=== PATIENT | female | born 1990 | race Two or more races ===

== ENCOUNTER 2016-09-28 05:33 | Inpatient (IN) | payer MEDICAID ==
--- NOTE | 2016-09-27 21:31 | PCM.LDHP ---
L&D History of Present Illness - General Date of Service: 09/28/16 Admit Problem/Dx: Admission Diagnosis/Problem Admission Diagnosis/Problem 09/27/16 21:17 History of present illness: Term intrauterine at 39-5/7 weeks gestational age, admitted for primary section. Source of Information: Patient History Limitations: Reports: No limitations - History of Present Illness Introduction:: History present illness: Patient is a 26-year-old 2 para 0010 at was due on 09/30/2002 placing her at 39-5/7 weeks gestation on admission. She is admitted for a scheduled section. She has history of hypertension, is unavailable 100 mg by mouth 3 times a day and has a relatively large baby with no descent into the pelvis. He has been headdown on ultrasound evaluation. Cervix is closed thick firm and no descent into the pelvis is noted. Patient has very narrow pubic ankle. Discussion was held patient as to her high blood pressure, her obesity and her lack of descent of the head into the pelvis. Options of intervention with primary section versus continued monitoring versus induction of labor all discussed with patient. She presents and wishes to proceed with primary section. ANIMAL CARE SPECIALIST history: 1 para 0010. Patient had menarche at age 15. Cycles q. 28 days. Last menstrual period was definite. Her is dated by last menstrual start 12/25/2015. Patient has had multiple ultrasounds along the way showing support for her LADY of 09/30/2016. Patient's group B strep screen is negative. She is a gestational diabetic. She is a gestational hypertensive. She is on meds for this. She is history of suicide attempt prior to this . She has significant obesity places her at higher risk. Her T. dap was given on 07/27/2016. During the course her patient's blood pressure increased and she was started on labetalol in early August 2016. This dosage was increased to 200 mg by mouth 3 times a day and with this does the patient has been relatively stable with near normal blood pressure evaluation. Findings more consistent with gestational hypertension and preeclampsia. Previous resulted in a miscarriage at 10 weeks occurring on 2008. Laboratory testing and shows blood to be O+. Negative and by screen. Platelets at first visit to 75. After is normal with exception no endocervical cells. Developed there shows immunity. RPR is nonreactive. Hepatitis B test is negative. Chlamydia and gonorrhea negative. Second trimester hemoglobin was 12.0 g/dL/and a repeat test in August 2016 showed a decreased at 10.8. Platelets are 248. Her group B strep screen. Weight gain was from 338.8 pounds to 361 pounds. This is a 22.2 #weight gain. Allergies none Medications: 1. vitamins daily 2. Labetalol 200 mg by mouth 3 times a day Past medical history: 1. Depression-suicidal attempt 2. Anxiety 3. Miscarriage. Family history paternal grandmother with diabetes and hypertension. Father with kidney stone history. No anesthesia, bleeding, blood clot sounds noted in the family. Social history: patient is single her significant other is Francis WALLACE. Patient smokes somewhat has lessened from 1 pack per day to one pack per week. She uses a significant amount of alcohol in a remote past but has been without alcohol during this . She is not working outside the home. She lives in [facility]. Review of systems: HEENT-negative Cardiovascular negative Respiratory-unremarkable Breasts-normal Abdomen/GI-normal -findings consistent with term Extremities/musculoskeletal-unremarkable Physical exam: On last evaluation clinic on 09/27/2016 her blood pressure is 114/70, weight was 361 pounds, her pregravid weight was 338.8 pounds. Height is 5 feet 11 inches. Skin is warm dry without lesions. HEENT, neck and back within normal as Lungs are clear with good breath sounds in all troncoso. Cardiovascular exam shows regular and rhythm without murmurs. Breasts exam is deferred having been done the time of her first child was found to be normal. Abdomen is obese with last fundal height at 49 cm much of this secondary to obesity. Difficult to assess the presentation but ultrasound confirms vertex presentation Cervical exam there closed/70% effaced/-3//midposition-cannot tell what presenting part is Extremities and neurological exam shows trace edema, normal neurological exam. - Related Data Allergies/Adverse Reactions: Allergies Allergy/AdvReac Type Severity Reaction Status Date / Time No Known Allergies Allergy Verified 09/12/16 13:08 Home Medications: Home Meds Pnv No.122/Iron/Folic Acid [ Multi Tablet] 1 each PO DAILY 09/12/16 [ History] Labetalol [Normodyne] 100 mg PO BID #60 tablet 09/14/16 [Rx] Social & Family History - Tobacco Use Smoking Status *Q: Current Every Day Smoker Years of Tobacco use: 5 - Alcohol Use Days Per Week of Alcohol Use: 0 - Recreational Drug Use Recreational Drug Use: No H&P Review of Systems - Review of Systems: Review Of Systems: See Below L&D Exam - Exam Exam: See Below - Vital Signs Weight: 163.112 kg Problem List Initiated/Reviewed/Updated: Yes Assessment/Plan Comment:: Assessment: 1. Term intrauterine at 39-5/7 weeks gestational age upon admission for a scheduled section. Reason for section include- hypertension in , non-engaged head, borderline narrow pelvic outlet. 2. Risk factors for surgery include morbid obesity, history of gestational diabetes, 3. T. lbf-ia-[id number]-date Plan: 1. Plan to do a primary section on 09/28/2016, procedure, risks, benefits, possible of cases and alternatives of care discussed in detail the patient. She appears to understand, and wishes to proceed and has signed a consent. 2. DVT prophylaxis with SCDs 3. Impression perforated Lasix with Ancef 3 g IV preop 4. Medication and lab orders are placed. Laboratories to include CBC and type and screen. 5. Patient plans to nurse
[~2016-09-28 05:33] MED LIST: Sodium Chloride 0.9% 10 ML Syringe FLUSH PRN
[2016-09-28] MEDS: Lactated Ringers 1,000 ML IV SCH ×2 (06:13→07:01)
[2016-09-28] MEDS ORDERED: Pneumococcal Polyvalent-23 Vaccine 0.5 ML SDV IM ONE (06:34)
[2016-09-28] MEDS ORDERED: Bupivacaine 0.5% 30 ML SDV ONE (06:37)
[2016-09-28] MEDS ORDERED: Citric Acid/Sodium Citrate Solution 30 ML Cup PO ONE (06:45)
[2016-09-28] MEDS ORDERED: Metoclopramide 10 MG/2 ML SDV IVPUSH ONE (06:45)
[2016-09-28] MEDS ORDERED: ceFAZolin 2 GM in Premix Bag 1 BAG IV ONE (07:00)
[2016-09-28] MEDS ORDERED: Lactated Ringers 1,000 ML ONE ×2 (07:00)
[2016-09-28] MEDS ORDERED: Morphine 10 MG/ML Syringe ONE (07:01)
[2016-09-28] MEDS ORDERED: ceFAZolin 1 GM Vial ONE ×2 (07:01→07:31)
[2016-09-28] MEDS ORDERED: Morphine PF 10 MG/10 ML SDV ONE (07:01)
[2016-09-28] MEDS ORDERED: Ondansetron 4 MG/2 ML SDV ONE (07:01)
[2016-09-28] MEDS ORDERED: Oxytocin 10 Units/1 ML SDV ONE (07:03)
--- NOTE | 2016-09-28 07:11 | PCM.PREANE ---
Preanesthetic Assessment - Anesthesia/Transfusion/Family Hx Anesthesia History: No Prior Anesthesia Transfusion History: No Prior Transfusion(s) - Review of Systems General: No Symptoms Pulmonary: No Symptoms Cardiovascular: No Symptoms Gastrointestinal: No symptoms Neurological: No Symptoms Other: Reports: Easy Bruising, Depression, Anxiety - Physical Assessment NPO Status Date: 09/27/16 NPO Status Time: 23:30 O2 Sat by Pulse Oximetry: 96 Respiratory Rate: 18 Vital Signs: Last Vital Signs Temp 98.5 F 09/28/16 05:57 Pulse 98 09/28/16 05:57 Resp 18 09/28/16 05:57 BP 143/64 H 09/28/16 05:57 Pulse Ox 96 09/28/16 05:57 Height: 5 ft 11 in Weight: 165.334 kg ASA Class: 2 Mental Status: Alert & Oriented x3 Airway Class: Mallampati = 1 Dentition: Reports: Normal Dentition, Broken Tooth/Teeth, Missing Tooth/Teeth, Caries Thyro-Mental Finger Breadths: 3 Mouth Opening Finger Breadths: 3 ROM/Head Extension: Full Lungs: Clear to auscultation, Normal respiratory effort Cardiovascular: Regular Rate, Regular Rhythm - Allergies Allergies/Adverse Reactions: Allergies Allergy/AdvReac Type Severity Reaction Status Date / Time No Known Allergies Allergy Verified 09/28/16 06:08 - Blood Blood Available: No - Anesthesia Plan Pre-Op Medication Ordered: None - Acknowledgements Anesthesia Type Planned: Spinal Pt an Appropriate Candidate for the Planned Anesthesia: Yes Alternatives and Risks of Anesthesia Discussed w Pt/Guardian: Yes Pt/Guardian Understands and Agrees with Anesthesia Plan: Yes PreAnesthesia Questionnaire Cardiovascular History: Reports: Hypertension, Other (see below) Other Cardiovascular History: Borderline gestational HTN. YOUTH CARE PROFESSIONAL History: Reports: , Spontaneous Psychiatric History: Reports: Addiction, Anxiety, Depression, Suicide attempt ( in past) - Past Surgical History Cardiovascular Surgical History: Reports: None - SUBSTANCE USE Smoking Status *Q: Former Smoker (quit july) Tobacco Use Within Last Twelve Months: Cigarettes Second Hand Smoke Exposure: No Days Per Week of Alcohol Use: 0 Number of Drinks Per Day: 0 Total Drinks Per Week: 0 Recreational Drug Use History: No - HOME MEDS Home Medications: Home Meds Pnv No.122/Iron/Folic Acid [ Multi Tablet] 1 each PO DAILY 09/12/16 [ History] Labetalol [Normodyne] 100 mg PO BID #60 tablet 09/14/16 [Rx] - CURRENT (IN HOUSE) MEDS Current Meds: Current Medications Lactated Ringer's (Ringers, Lactated) 1,000 mls @ 125 mls/hr IV ASDIRECTED KATERINA Last Admin: 09/28/16 07:01 Dose: 125 mls/hr Oxytocin 20 unit/ Lactated (Ringer's) 1,002 mls @ 500 mls/hr IV TITRATE KATERINA PRN Reason: Protocol Cefazolin Sodium/Dextrose 2 gm (/ Premix) 50 mls @ 100 mls/hr IV ONETIME ONE Stop: 09/28/16 07:29 Sodium Chloride (Saline Flush) 10 ml FLUSH ASDIRECTED PRN PRN Reason: Keep Vein Open Discontinued Medications Bupivacaine HCl (Marcaine 0.5%) Confirm Administered Dose 30 ml .ROUTE .STK-MED ONE Stop: 09/28/16 06:38 Cefazolin Sodium (Ancef) Confirm Administered Dose 2 gm .ROUTE .STK-MED ONE Stop: 09/28/16 07:02 Citric Acid/Sodium Citrate (Bicitra Solution) 30 ml PO ONETIME ONE Stop: 09/28/16 06:46 Last Admin: 09/28/16 07:02 Dose: 30 ml Lactated Ringer's (Ringers, Lactated) Confirm Administered Dose 1,000 mls @ as directed .ROUTE .STK-MED ONE Stop: 09/28/16 07:01 Lactated Ringer's (Ringers, Lactated) Confirm Administered Dose 1,000 mls @ as directed .ROUTE .STK-MED ONE Stop: 09/28/16 07:01 Metoclopramide HCl (Reglan) 10 mg IVPUSH ONETIME ONE Stop: 09/28/16 06:46 Last Admin: 09/28/16 07:03 Dose: 10 mg Morphine Sulfate (Morphine) Confirm Administered Dose 10 mg .ROUTE .STK-MED ONE Stop: 09/28/16 07:02 Morphine Sulfate (Duramorph Pf) Confirm Administered Dose 10 mg .ROUTE .STK-MED ONE Stop: 09/28/16 07:02 Ondansetron HCl (Zofran) Confirm Administered Dose 4 mg .ROUTE .STK-MED ONE Stop: 09/28/16 07:02 Oxytocin (Pitocin) Confirm Administered Dose 20 unit .ROUTE .STK-MED ONE Stop: 09/28/16 07:04 Pneumococcal Polyvalent Vaccine (Pneumovax 23) 0.5 ml IM .ONCE ONE Stop: 09/28/16 06:35 Preanesthetic Assessment - ANESTHESIA/TRANSFUSION/FAMILY HX Family History of Anesthesia Reaction: No - PHYSICAL ASSESSMENT O2 Sat by Pulse Oximetry: 96 RR: 18 Vital Signs: Last Vital Signs Temp 98.5 F 09/28/16 05:57 Pulse 98 09/28/16 05:57 Resp 18 09/28/16 05:57 BP 143/64 H 09/28/16 05:57 Pulse Ox 96 09/28/16 05:57 Height: 5 ft 11 in Weight: 165.334 kg - ALLERGIES Allergies/Adverse Reactions: Allergies Allergy/AdvReac Type Severity Reaction Status Date / Time No Known Allergies Allergy Verified 09/28/16 06:08
[2016-09-28] MEDS ORDERED: diphenhydrAMINE 50 MG/ML SDV IVPUSH PRN ×2 (07:58→09:21)
[2016-09-28] MEDS ORDERED: Ondansetron 4 MG/2 ML SDV IVPUSH PRN (07:58)
[2016-09-28] MEDS ORDERED: fentaNYL 100 MCG/2 ML SDV IVPUSH PRN (07:58)
[2016-09-28] MEDS ORDERED: ePHEDrine/Normal Saline 25 MG/5 ML Syringe ONE ×2 (08:03→08:09)
[2016-09-28] MEDS ORDERED: Meperidine PF 50 MG/ML Syringe IVPUSH PRN (08:30)
[2016-09-28] MEDS ORDERED: Ketorolac 30 MG/ML SDV ONE (08:48)
--- NOTE | 2016-09-28 09:08 | PCM.POSTAN ---
POST ANESTHESIA ASSESSMENT - MENTAL STATUS Mental Status: alert, oriented - VITAL SIGNS Pulse Rate: 73 SaO2: 100 Resp Rate: 20 Blood Pressure: 119/73 Temperature: 96.8 F - RESPIRATORY Respiratory Status: respiratory rate WNL, airway patent, O2 saturation stable, supplemental oxygen - CARDIOVASCULAR CV Status: pulse rate WNL, blood pressure stable - GASTROINTESTINAL GI Status: no symptoms - PAIN Pain Score: 0 - POST OP HYDRATION Hydration Status: adequate & stable
--- NOTE | 2016-09-28 09:09 | PCM.OPNOTE ---
- General Post-Op/Procedure Note Date of Surgery/Procedure: 09/28/16 Operative Procedure(s): Primary low transverse uterine segment section through Pfannenstiel skin incision Findings: Baby is in transverse lie with back down and head to the right. Cervix was 1-2 cm dilated. An air-fluid was clear. EBL 1800 cc, urine output 50 cc, surgery duration 56 minutes, female infant born at 0809 hours on 09[birth year]/2016 with Apgars of 7 and 9 and weight of 8 lbs. 6 oz. Pre Op Diagnosis: 39-5/7 week intrauterine , variable lie, unripe cervix. Post-Op Diagnosis: Same delivery of viable 8 lbs. 6 oz. female infant Apgars of 8/9 at 0809 hours on 09/28/2016 Anesthesia Technique: Spinal Other Anesthesia Type: Marcaine 0.5%-20 cc local in the incision site. Primary Surgeon: Gaetano Merchant Secondary Surgeon: Ancelmo Castellanos Anesthesia Provider: Piotr Rollins Seal Extrusion Operator: Brittany Wen Fluid Replacement, Intraop: 3,900 (Crystalloid) Output, Urine Amount: 50 EBL in mLs: 1,800 Drain/Tube Comments:: Indwelling bladder catheter Complications: None Condition: Good Free Text/Narrative:: Intake & Output 09/27/16 09/28/16 09/28/16 22:59 06:59 14:59 Intake Total 1000 Balance 1000 Surgeon duration: 56 minutes. Complications: None Procedure: Patient was transferred the room and placed in a sitting position. Spinal anesthesia was administered. After adequate anesthesia patient was placed in a supine position with a wedge under her right side to facilitate left lateral positioning. The patient was prepped and draped in usual fashion after Torres catheter was placed. The anesthetic was checked and found to be adequate. Marcaine 0.5%-20 cc was infiltrated into the section incision site. The Pfannenstiel skin incision was then made carried down to skin subcutaneous and fascial layers. The fascia was then undermined superiorly and inferiorly to allow for adequate operating room. The recti muscles were midline and preperitoneal fat was bluntly dissected. Peritoneal cavity was entered longitudinally. The vesicouterine peritoneum was then incised transversely and bladder flap was developed. Marked bleeding was encountered due to a venous sinus which was transverse in position and just below the incision site on the lower uterine segment. Myometrium was incised transversely to the level of the amniotic sac. Amniotic sac was ruptured and clear fluid resulted. This incision was extended bilaterally in a blunt fashion. He was found to be in a transverse lie with back down and head to the right. A hand is placed into the lower uterine segment and the baby's feet were brought into the incision area and using complete breech extraction technique baby is delivered without incident. The baby was completely delivered using with fundal pressure in a routine fashion. The nose and mouth were bulb suctioned. Baby's cord was clamped x2 cut and baby was handed off to attending video coordinator Dr. Pratt. Placenta was expressed after cord blood was obtained. Uterus was then exteriorized to allow for easier closure. The cervix was assessed and found to be dilated adequately to allow egress of blood. The uterus was closed in 2 layers. The first layer a running locked suture of 0 Monocryl, the second layer a running locked vertical mattress suture of 0 Monocryl. Hemostasis confirmed at this time. Us in 3 or 4 [id number] sutures were used to control bleeding of venous sinus just below the incision site. Hemostasis was then confirmed. Sponge, instrument, needle counts are correct. The uterus was returned to the abdominal cavity and lateral gutters were cleared of blood. Once again sponge, needle counts are correct. The anterior abdominal wall fascia was closed with 2 sutures of #1 PDS suture from angle to mid incision each. The subcutaneous area was found to be free of any bleeders. 3 subcutaneous stitches of 0 Monocryl were used to close the subcutaneous space. Skin was closed with a running subcuticular stitch of 3-0 Monocryl in a vertical mattress suture fashion using a Jered needle. It was further approximated with Prineo skin mesh/glue. It should be noted that patient received 3 g of Ancef preoperatively for infection prophylaxis and had Pitocin infused after delivery of the placenta to facilitate uterine contraction. She also had sequential compression stockings in place for DVT prophylaxis.
[2016-09-28] MEDS ORDERED: Dextrose 5%-Lactated Ringers 1,000 ML IV SCH (09:21)
[2016-09-28] MEDS ORDERED: Ondansetron 4 MG/2 ML SDV IV PRN (09:21)
[2016-09-28] MEDS ORDERED: Naloxone 0.4 MG/ML SDV IVPUSH PRN (09:21)
[2016-09-28] MEDS ORDERED: Lanolin 100% Cream 7 GM Tube TOP PRN (09:21)
[2016-09-28] MEDS ORDERED: ePHEDrine 50 MG/ML SDV IVPUSH PRN (09:21)
[2016-09-28] MEDS ORDERED: Dextrose 5%-0.45% NaCl 1,000 ML IV SCH (09:21)
[2016-09-28] MEDS: Simethicone 80 MG Tab.Chew PO SCH ×3 (12:59→23:24)
[2016-09-28] MEDS: Prenatal Multivitamin with Calcium/Folic Acid/Iron Tab PO SCH (15:44)
[2016-09-28] MEDS: Ibuprofen 800 MG Tab PO SCH ×2 (15:48→23:23)
[2016-09-28] MEDS ORDERED: Sodium Chloride 0.9% 1,000 ML IV ONE (18:07)
[2016-09-28] MEDS: Docusate Sodium 100 MG Cap PO PRN (23:23)
--- NOTE | 2016-09-29 07:50 | PCM48HPAN ---
Post Anesthesia Note - EVALUATION WITHIN 48HRS OF ANESTHETIC Vital Signs in Normal Range: Yes Patient Participated in Evaluation: Yes Respiratory Function Stable: Yes Airway Patent: Yes Cardiovascular Function Stable: Yes Hydration Status Stable: Yes Pain Control Satisfactory: Yes Nausea and Vomiting Control Satisfactory: Yes Mental Status Recovered: Yes
[2016-09-29] MEDS: Simethicone 80 MG Tab.Chew PO SCH ×3 (09:11→17:20)
[2016-09-29] MEDS: Ibuprofen 800 MG Tab PO SCH ×3 (09:11→17:19)
[2016-09-29] MEDS: Prenatal Multivitamin with Calcium/Folic Acid/Iron Tab PO SCH (09:13)
--- NOTE | 2016-09-29 15:41 | PCM.SN ---
- Free Text/Narrative Note: Patient on postoperative day 1. She is at very well, has minimal discomfort. She is nursing without concerns. Vital signs stable. Patient is afebrile. Abdomen is flat, soft, nontender and. Incision is intact. Legs nontender. Hemoglobin is decreased at 8.0. Exam are without concerns. Low hemoglobin most probably secondary to blood loss at the time of section. Assessment/plan: Postoperative day 1-doing well. Home tomorrow. Routine cares.
[2016-09-29] MEDS: Docusate Sodium 100 MG Cap PO PRN (19:52)
[2016-09-29] MEDS: Acetaminophen/oxyCODONE 325-5 MG Tab PO PRN (19:52)
[2016-09-30] MEDS: Ibuprofen 800 MG Tab PO SCH ×3 (01:04→17:18)
[2016-09-30] MEDS: Simethicone 80 MG Tab.Chew PO SCH ×4 (01:05→17:17)
[2016-09-30] MEDS: Acetaminophen/oxyCODONE 325-5 MG Tab PO PRN ×2 (03:04→17:17)
[2016-09-30] MEDS: Prenatal Multivitamin with Calcium/Folic Acid/Iron Tab PO SCH (09:17)
[2016-09-30 11:54] VITALS: BP 149/89
--- NOTE | 2016-09-30 15:12 | PCM.DCSUM1 ---
Discharge Summary - Hospital Course Free Text/Narrative:: Nelida was admitted for elective section. Baby was felt to be and abnormal lie with presenting part not down in the pelvis. She underwent elective section and was found to have her baby in a transverse lie with back down and head to the right. Cervix was 1-2 cm dilated. An air-fluid was clear. EBL 1800 cc, urine output 50 cc, surgery duration 56 minutes, female born at 0809 hours on 09/28/2014 with Apgars of 7 and 9 and weight of 8 lbs. 6 oz.. Please see operative report for details. Postoperatively patient has done very well. Is doing well, using only ibuprofen for pain control. Hemoglobin is decreased 8.0 blood patient's function well with this. She has returned normal bowel, bladder and immature activity. Decision appears to healing well. PRINEO remains in place. Patient's eyes how to care for this. She is desiring discharge home. - Discharge Data Discharge Date: 09/30/16 Discharge Disposition: Home, Self-Care 01 Condition: Good - Patient Summary/Data Operative Procedure(s) Performed: Primary low transverse uterine segment section through Pfannenstiel skin incision Consults: Consultations 09/28/16 18:50 Consult to Lead Radiologic Technologist [CONS] Routine - Patient Instructions Diet: Regular Diet as Tolerated (Patient has increased calcium and calories) Activity: As Tolerated (Except no driving a car or tub baths x1 week. No lifting greater than 15 pounds x1 week.) Driving: Do Not Drive Showering/Bathing: May Shower Wound/Incision Care: Keep Operative Site/Wound Site Clean and Dry Notify Provider of: Fever, Increased Pain, Swelling and Redness, Drainage, Nausea and/or Vomiting - Discharge Plan Home Medications: Home Meds Pnv No.122/Iron/Folic Acid [ Multi Tablet] 1 each PO DAILY 09/12/16 [ History] Acetaminophen/oxyCODONE [Percocet 325-5 MG] 2 tab PO Q4H PRN #30 tablet [Rx] Ibuprofen [IJD: Ibuprofen] 800 mg PO Q8H tablet 09/30/16 [Rx] Patient Handouts: Smoking Cessation, Tips for Success, Albl-uy-Hyon, Smoking Hazards, Steps to Quit Smoking Referrals: Gaetano Merchant MD [Primary Care Provider] - (Return to clinic-Dr. Merchant-1 week for blood pressure check. Return to clinic in 4 weeks for evaluation-Dr. mays. Return to clinic clinic-Dr. aranda-4 weeks for evaluation.) - Discharge Summary/Plan Comment DC Time >30 min.: No Discharge Summary/Plan Comment: Discharge instructions: Performed. Discharge 2. Regular, high fiber, nursing diet 3. Precautions given concern increased pain, bleeding, temperature, signs/ symptoms of DVT/PE. 4. Medications medications printed, discussed with given to the patient 5. Return to clinic-Dr. Merchant-1 week-[facility]. Return to clinic to see Dr. aranda in 4 weeks for followup. - Patient Data Vitals - Most Recent: Last Vital Signs Temp 36.6 C 09/30/16 09:16 Pulse 100 09/30/16 09:16 Resp 16 09/30/16 09:16 BP 149/89 H 09/30/16 09:16 Pulse Ox 98 09/30/16 09:16 Weight - Most Recent: 165.334 kg I&O - Last 24 hours: Intake & Output 09/30/16 09/30/16 09/30/16 06:59 14:59 22:59 Intake Total 120 Balance 120 Med Orders - Current: Current Medications Diphenhydramine HCl (Benadryl) 25 mg IVPUSH Q6H PRN PRN Reason: pruritis Diphenhydramine HCl (Benadryl) 25 mg IVPUSH Q6H PRN PRN Reason: Itching or Nausea Docusate Sodium (Colace) 100 mg PO Q12H PRN PRN Reason: Constipation Last Admin: 09/29/16 19:52 Dose: 100 mg Emollient Ointment (Lansinoh Hpa) 0 gm TOP ASDIRECTED PRN PRN Reason: Sore Nipples Ephedrine Sulfate (Ephedrine Sulfate) 5 mg IVPUSH SEECOMMENT PRN PRN Reason: Other Dextrose/Sodium Chloride (Dextrose 5%-1/2 Ns) 1,000 mls @ 125 mls/hr IV ASDIRECTED KATERINA Last Admin: 09/28/16 19:40 Dose: 125 mls/hr Ibuprofen (Motrin) 800 mg PO Q8H KATERINA Last Admin: 09/30/16 09:18 Dose: 800 mg Naloxone HCl (Narcan) 0.1 mg IVPUSH SEECOMMENT PRN PRN Reason: Respiratory Depression Ondansetron HCl (Zofran) 4 mg IV Q4H PRN PRN Reason: Nausea/Vomiting Oxycodone/Acetaminophen (Percocet 325-5 Mg) 2 tab PO Q4H PRN PRN Reason: Pain (moderate 4-6) Last Admin: 09/30/16 03:04 Dose: 2 tab Prenat Multivit/Pack Train Driver/Iron/Folic Ac ( Plus Iron) 1 each PO DAILY [facility] Last Admin: 09/30/16 09:17 Dose: 1 each Simethicone (Simethicone) 80 mg PO PCBED [facility] Last Admin: 09/30/16 09:17 Dose: 80 mg Discontinued Medications Bupivacaine HCl (Marcaine 0.5%) Confirm Administered Dose 30 ml .ROUTE .STK-MED ONE Stop: 09/28/16 06:38 Last Admin: 09/28/16 08:01 Dose: 20 ml Cefazolin Sodium (Ancef) Confirm Administered Dose 2 gm .ROUTE .STK-MED ONE Stop: 09/28/16 07:02 Cefazolin Sodium (Ancef) Confirm Administered Dose 1 gm .ROUTE .STK-MED ONE Stop: 09/28/16 07:32 Citric Acid/Sodium Citrate (Bicitra Solution) 30 ml PO ONETIME ONE Stop: 09/28/16 06:46 Last Admin: 09/28/16 07:02 Dose: 30 ml Ephedrine Sulfate (Ephedrine In Ns) Confirm Administered Dose 25 mg .ROUTE .STK- MED ONE Stop: 09/28/16 08:04 Ephedrine Sulfate (Ephedrine In Ns) Confirm Administered Dose 25 mg .ROUTE .STK- MED ONE Stop: 09/28/16 08:10 Fentanyl (Sublimaze) 50 mcg IVPUSH Q5M PRN PRN Reason: Pain Lactated Ringer's (Ringers, Lactated) 1,000 mls @ 125 mls/hr IV ASDIRECTED [facility] Last Admin: 09/28/16 07:01 Dose: 125 mls/hr Oxytocin 20 unit/ Lactated (Ringer's) 1,002 mls @ 500 mls/hr IV TITRATE [facility] PRN Reason: Protocol Cefazolin Sodium/Dextrose 2 gm (/ Premix) 50 mls @ 100 mls/hr IV ONETIME ONE Stop: 09/28/16 07:29 Last Admin: 09/30/16 04:21 Dose: Not Given Lactated Ringer's (Ringers, Lactated) Confirm Administered Dose 1,000 mls @ as directed .ROUTE .STK-MED ONE Stop: 09/28/16 07:01 Lactated Ringer's (Ringers, Lactated) Confirm Administered Dose 1,000 mls @ as directed .ROUTE .ST-MED ONE Stop: 09/28/16 07:01 Dextrose/Lactated Ringer's (Dextrose 5%-Lactated Ringers) 1,000 mls @ 125 mls/ hr IV ASDIRECTED [facility] Stop: 09/28/16 17:20 Last Admin: 09/28/16 11:43 Dose: 125 mls/hr Sodium Chloride (Normal Saline) 1,000 mls @ 999 mls/hr IV ONETIME ONE Stop: 09/28/16 19:07 Last Admin: 09/28/16 18:25 Dose: 999 mls/hr Ibuprofen (Motrin) 800 mg PO Q8H [facility] Last Admin: 09/29/16 16:23 Dose: Not Given Ketorolac Tromethamine (Toradol) Confirm Administered Dose 30 mg .ROUTE .STK- MED ONE Stop: 09/28/16 08:49 Meperidine HCl (Demerol) 12.5 mg IVPUSH ONETIME PRN PRN Reason: shivering Stop: 09/29/16 08:31 Metoclopramide HCl (Reglan) 10 mg IVPUSH ONETIME ONE Stop: 09/28/16 06:46 Last Admin: 09/28/16 07:03 Dose: 10 mg Morphine Sulfate (Morphine) Confirm Administered Dose 10 mg .ROUTE .STK-MED ONE Stop: 09/28/16 07:02 Morphine Sulfate (Duramorph Pf) Confirm Administered Dose 10 mg .ROUTE .STK-MED ONE Stop: 09/28/16 07:02 Ondansetron HCl (Zofran) Confirm Administered Dose 4 mg .ROUTE .STK-MED ONE Stop: 09/28/16 07:02 Ondansetron HCl (Zofran) 4 mg IVPUSH ONETIME PRN PRN Reason: Nausea/Vomiting Oxytocin (Pitocin) Confirm Administered Dose 20 unit .ROUTE .STK-MED ONE Stop: 09/28/16 07:04 Pneumococcal Polyvalent Vaccine (Pneumovax 23) 0.5 ml IM .ONCE ONE Stop: 09/28/16 06:35 Sodium Chloride (Saline Flush) 10 ml FLUSH ASDIRECTED PRN PRN Reason: Keep Vein Open *Q Meaningful Use (DIS) - VTE *Q VTE Criteria *Q: - Stroke *Q Stroke Criteria *Q: - AMI *Q AMI Criteria *Q:
== END 2016-09-30 18:40 | disposition home or self-care (01) | DRG 766 ==
LOC: JD.OB 05:33
PROVIDERS: ADMIT Obstetrics & Gynecology; ATTEND Obstetrics & Gynecology
PROC: 10D00Z1 Extraction of Products of Conception, Low, Open Approach (ICD-10-PCS; principal; 2016-09-28)
DX: O13.4 Gestational [pregnancy-induced] hypertension without significant proteinuria, complicating childbirth (principal); Z37.0 Single live birth; O32.4XX0 Maternal care for high head at term, not applicable or unspecified; Z3A.40 40 weeks gestation of pregnancy; O99.334 Smoking (tobacco) complicating childbirth
CPT/HCPCS: 01961; 36415; 85025; 94762; A9270-GY; J0690; J1885; J2270; J2405; J2590; J2765; J7040; J7042; J7050; J7120

== ENCOUNTER 2018-02-19 10:55 | Inpatient (IN) | payer MEDICAID ==
[2018-02-19] MEDS ORDERED: Bupivacaine 0.5% 30 ML SDV ONE (11:25)
[2018-02-19] MEDS ORDERED: Nalbuphine 20 MG/ML 1 ML Syringe IVPUSH PRN (11:29)
[2018-02-19] MEDS ORDERED: Metoclopramide 10 MG/2 ML SDV IVPUSH ONE (11:29)
[2018-02-19] MEDS ORDERED: Citric Acid/Sodium Citrate Solution 30 ML Cup PO ONE (11:29)
[2018-02-19] MEDS ORDERED: ceFAZolin 1 GM in Premix Bag 1 BAG IV ONE (11:29)
[2018-02-19] MEDS ORDERED: Sodium Chloride 0.9% 10 ML Syringe FLUSH PRN ×2 (11:29→15:03)
[2018-02-19] MEDS ORDERED: Ondansetron 4 MG/2 ML SDV IVPUSH PRN (11:29)
[2018-02-19] MEDS ORDERED: ceFAZolin 2 GM in Premix Bag 1 BAG IV ONE (11:29)
[2018-02-19] MEDS ORDERED: Lactated Ringers 1,000 ML IV SCH (11:30)
[2018-02-19] MEDS ORDERED: Morphine PF 1 MG/ML Amp ONE (11:34)
[2018-02-19] MEDS ORDERED: Oxytocin/Lactated Ringers 20 UNIT/1,000 ML BAG IV SCH (11:45)
--- NOTE | 2018-02-19 13:20 | PCM.OPNOTE ---
- General Post-Op/Procedure Note Date of Surgery/Procedure: 02/19/18 Operative Procedure(s): Repeat low segment transverse Pre Op Diagnosis: Z3A.40, BPP 2/8 (decreased movement), morbid obesity Post-Op Diagnosis: Same plus nuchal cord times one and light meconium-stained amnionic fluid Anesthesia Technique: Spinal Primary Surgeon: Byron Waldrop Secondary Surgeon: Darshana Flynn Anesthesia Provider: Brittany Fuentes Federal Mediation Commissioner: Rachele Hernandez (ADARSH) Reason Federal Mediation Commissioner Was Necessary: Morbid obesity, difficult procedure, retraction, decrease cold morbidity and mortality Role of Federal Mediation Commissioner: Morbid obesity, difficult procedure, retraction, decrease cold morbidity and mortality Fluid Replacement, Intraop: 2,500 Output, Urine Amount: 100 EBL in mLs: 1,000 Drain/Tube Comments:: Torres Complications: None Condition: Good Free Text/Narrative:: Patient Was transported to the operating room and placed under spinal anesthesia in the supine position with wedge under the right hip and right flank Torres catheter placed gravity drainage. Prepared and draped in a sterile fashion after placing the traxi drape. Timeout performed confirming name, date of and procedure as repeat section. Patient had SCDs in place and functioning prior surgery. Ancef 2 g given intravenously prior surgery. Adequate level of anesthesia was confirmed. Patient's brought to the operating room. Injecting 20 mL of 0.5% Marcaine in the area of the planned Pfannenstiel incision. Pfannenstiel incision was made and care was sharp section to into the anterior fascia. Peritoneal cavity was entered without difficulty. Bladder flap created pushed caudad. Low segment transverse C- section performed, light meconium-stained amnionic fluid upon entry into the uterine cavity. The vacuum extractor was applied to assist in delivery for 5 seconds in the green. Infant delivered without difficulty at 1233 weighing 9 lbs. 0 oz./4082 g Apgars 9/9 Dr. Nieves pattern ruler in attendance. Female liveborn. Cord blood collected from three-vessel cord, placenta removed manually. Endometrial cavity inspected additional remnants of membranes removed. Sponge needle pack instrument and sharp count correct times one and the uterine incision closed in 2 layers. First layer running locking suture of 0 Monocryl. Second layer horizontal imbricating suture modified Lembert type. Hemostasis was obtained. Both tubes and ovaries appeared normal clot screen from the gutters and cul-de-sac, uterus replaced into the abdominal cavity. Sponge needle pack instrument and sharp count correct 2. The abdominal cavity was then closed with #1 PDS for the anterior fascia. 2 layers of subcutaneous closure with interrupted 0 Monocryl. Skin was closed with 3-0 Monocryl Jered needle subcuticular. Dermabond Preneo applied. Clots were cleaned from the vagina is end procedure. Patient transported postanesthesia care unit in satisfactory condition. No blood transfusions required.
[2018-02-19] MEDS ORDERED: diphenhydrAMINE 50 MG/ML SDV IVPUSH PRN (15:03)
[2018-02-19] MEDS ORDERED: ePHEDrine 50 MG/ML SDV IVPUSH PRN (15:03)
[2018-02-19] MEDS ORDERED: Acetaminophen 325 MG Tab PO PRN (15:03)
[2018-02-19] MEDS ORDERED: Ondansetron 4 MG/2 ML SDV IV PRN (15:03)
[2018-02-19] MEDS ORDERED: Lanolin 100% Cream 7 GM Tube TOP PRN (15:03)
[2018-02-19] MEDS ORDERED: Naloxone 0.4 MG/ML SDV IVPUSH PRN (15:03)
[2018-02-19] MEDS ORDERED: Acetaminophen/oxyCODONE 325-5 MG Tab PO PRN (15:03)
[2018-02-19] MEDS ORDERED: Docusate Sodium 100 MG Cap PO PRN (15:03)
[2018-02-19] MEDS: Dextrose 5%-Lactated Ringers 1,000 ML IV SCH ×2 (17:06→18:58)
[2018-02-19] MEDS ORDERED: Furosemide 40 MG/4 ML VIAL IVPUSH ONE (18:25)
[2018-02-19] MEDS: Ketorolac 30 MG/ML SDV IVPUSH SCH (18:59)
[2018-02-19] MEDS: Simethicone 80 MG Tab.Chew PO SCH ×2 (19:01→22:06)
[2018-02-20] MEDS: Ketorolac 30 MG/ML SDV IVPUSH SCH ×2 (00:46→06:48)
[2018-02-20] MEDS ORDERED: Dextrose 5%-Lactated Ringers 1,000 ML IV STA (02:47)
[2018-02-20] MEDS ORDERED: Dextrose 5%-Lactated Ringers 1,000 ML IV SCH (03:00)
--- NOTE | 2018-02-20 07:54 | PCM.SN ---
- Free Text/Narrative Note: 02/20/18 0852 hrs. postop day one/ day 1 Chest clear cardiovascular exam normal abdomen is nontender uterus is difficult to palpate due to body habitus. No heavy vaginal bleeding. Incision appears normal with some expected sleeping through the Dermabond Preneo. No leg cramping. Hemoglobin preop 11.0 and 34.9 hematocrit postop today hemoglobin 7.6 hematocrit 24.7 patient has not attempted to stand yet if she is symptomatic she may need blood transfusion. Put has improved through the night.
--- NOTE | 2018-02-20 08:26 | PCM48HPAN ---
Post Anesthesia Note - EVALUATION WITHIN 48HRS OF ANESTHETIC Vital Signs in Normal Range: Yes Patient Participated in Evaluation: Yes Respiratory Function Stable: Yes Airway Patent: Yes Cardiovascular Function Stable: Yes Hydration Status Stable: Yes Pain Control Satisfactory: Yes Nausea and Vomiting Control Satisfactory: Yes Mental Status Recovered: Yes Pulse Rate: 86 Resp Rate: 14 Temperature: 98.2 F Blood Pressure: 144/67
[2018-02-20] MEDS ORDERED: Pneumococcal Polyvalent-23 Vaccine 0.5 ML SDV SUBCUT ONE (09:00)
[2018-02-20] MEDS ORDERED: Diphtheria,Pertussis(Acell),Tetanus Vaccine 0.5 ML SDV IM ONE (09:00)
[2018-02-20] MEDS: Simethicone 80 MG Tab.Chew PO SCH ×4 (11:27→22:15)
[2018-02-20] MEDS: Ibuprofen 600 MG Tab PO PRN ×2 (15:49→22:14)
--- NOTE | 2018-02-21 08:58 | PCM.DCSUM1 ---
Discharge Summary - Hospital Course Free Text/Narrative:: [facility] Post-Op/Procedure Note Patient Name: JESSE RIOJAS Date of : 89 Patient Status: Inpatient Attending Provider: Byron Waldrop Date: 02/19/18 13:14 Initialization Date: 02/19/18 13:14 - General Post-Op/Procedure Note Date of Surgery/Procedure: 02/19/18 Operative Procedure(s): Repeat low segment transverse Pre Op Diagnosis: Z3A.40, BPP 2/8 (decreased movement), morbid obesity Post-Op Diagnosis: Same plus nuchal cord times one and light meconium-stained amnionic fluid Anesthesia Technique: Spinal Primary Surgeon: Byron Waldrop Secondary Surgeon: Darshana Flynn Anesthesia Provider: Brittany Fuentes Risk Developer: Rachele Hernandez (PAS) Reason Risk Developer Was Necessary: Morbid obesity, difficult procedure, retraction, decrease cold morbidity and mortality Role of Risk Developer: Morbid obesity, difficult procedure, retraction, decrease cold morbidity and mortality Fluid Replacement, Intraop: 2,500 Output, Urine Amount: 100 EBL in mLs: 1,000 Drain/Tube Comments:: Torres Complications: None Condition: Good Free Text/Narrative:: Patient Was transported to the operating room and placed under spinal anesthesia in the supine position with wedge under the right hip and right flank Torres catheter placed gravity drainage. Prepared and draped in a sterile fashion after placing the traxi drape. Timeout performed confirming name, date of and procedure as repeat section. Patient had SCDs in place and functioning prior surgery. Ancef 2 g given intravenously prior surgery. Adequate level of anesthesia was confirmed. Patient's brought to the operating room. Injecting 20 mL of 0.5% Marcaine in the area of the planned Pfannenstiel incision. Pfannenstiel incision was made and care was sharp section to into the anterior fascia. Peritoneal cavity was entered without difficulty. Bladder flap created pushed caudad. Low segment transverse C- section performed, light meconium-stained amnionic fluid upon entry into the uterine cavity. The vacuum extractor was applied to assist in delivery for 5 seconds in the green. delivered without difficulty at 1233 weighing 9 lbs. 0 oz./4082 g Apgars 03/04 Dr. Nieves floor hand in attendance. Female liveborn. Cord blood collected from three-vessel cord, placenta removed manually. Endometrial cavity inspected additional remnants of membranes removed. Sponge needle pack instrument and sharp count correct times one and the uterine incision closed in 2 layers. First layer running locking suture of 0 Monocryl. Second layer horizontal imbricating suture modified Lembert type. Hemostasis was obtained. Both tubes and ovaries appeared normal clot screen from the gutters and cul-de-sac, uterus replaced into the abdominal cavity. Sponge needle pack instrument and sharp count correct 2. The abdominal cavity was then closed with #1 PDS for the anterior fascia. 2 layers of subcutaneous closure with interrupted 0 Monocryl. Skin was closed with 3-0 Monocryl Jered needle subcuticular. Dermabond Preneo applied. Clots were cleaned from the vagina is end procedure. Patient transported postanesthesia care unit in satisfactory condition. No blood transfusions required. HgB this AM 7.5, patient not symptomatic and declined blood transfusion HPI Initial Comments: [facility] Post-Op/Procedure Note Patient Name: JESSE RIOJAS Date of : 89 Patient Status: Inpatient Attending Provider: Byron Waldrop Date: 02/19/18 13:14 Initialization Date: 02/19/18 13:14 - General Post-Op/Procedure Note Date of Surgery/Procedure: 02/19/18 Operative Procedure(s): Repeat low segment transverse Pre Op Diagnosis: Z3A.40, BPP 2/8 (decreased movement), morbid obesity Post-Op Diagnosis: Same plus nuchal cord times one and light meconium-stained amnionic fluid Anesthesia Technique: Spinal Primary Surgeon: Byron Waldrop Secondary Surgeon: Darshana Flynn Anesthesia Provider: Brittany Fuentes Risk Developer: Rachele Hernandez (ADARSH) Reason Risk Developer Was Necessary: Morbid obesity, difficult procedure, retraction, decrease cold morbidity and mortality Role of Risk Developer: Morbid obesity, difficult procedure, retraction, decrease cold morbidity and mortality Fluid Replacement, Intraop: 2,500 Output, Urine Amount: 100 EBL in mLs: 1,000 Drain/Tube Comments:: Torres Complications: None Condition: Good Free Text/Narrative:: Patient Was transported to the operating room and placed under spinal anesthesia in the supine position with wedge under the right hip and right flank Torres catheter placed gravity drainage. Prepared and draped in a sterile fashion after placing the traxi drape. Timeout performed confirming name, date of and procedure as repeat section. Patient had SCDs in place and functioning prior surgery. Ancef 2 g given intravenously prior surgery. Adequate level of anesthesia was confirmed. Patient's brought to the operating room. Injecting 20 mL of 0.5% Marcaine in the area of the planned Pfannenstiel incision. Pfannenstiel incision was made and care was sharp section to into the anterior fascia. Peritoneal cavity was entered without difficulty. Bladder flap created pushed caudad. Low segment transverse C- section performed, light meconium-stained amnionic fluid upon entry into the uterine cavity. The vacuum extractor was applied to assist in delivery for 5 seconds in the green. Infant delivered without difficulty at 1233 weighing 9 lbs. 0 oz./4082 g Apgars 9/9 Dr. Nieves floor hand in attendance. Female liveborn. Cord blood collected from three-vessel cord, placenta removed manually. Endometrial cavity inspected additional remnants of membranes removed. Sponge needle pack instrument and sharp count correct times one and the uterine incision closed in 2 layers. First layer running locking suture of 0 Monocryl. Second layer horizontal imbricating suture modified Lembert type. Hemostasis was obtained. Both tubes and ovaries appeared normal clot screen from the gutters and cul-de-sac, uterus replaced into the abdominal cavity. Sponge needle pack instrument and sharp count correct 2. The abdominal cavity was then closed with #1 PDS for the anterior fascia. 2 layers of subcutaneous closure with interrupted 0 Monocryl. Skin was closed with 3-0 Monocryl Jered needle subcuticular. Dermabond Preneo applied. Clots were cleaned from the vagina is end procedure. Patient transported postanesthesia care unit in satisfactory condition. No blood transfusions required. HgB this AM 7.5, patient not symptomatic and declined blood transfusion Brief History: [facility] . Post-Op/Procedure Note. Patient Name: JESSE RIOJAS [facility] Record Number: [id number]. Date of : [birth year]Patient Status: Inpatient. [id number]. Date: 02/19/18 13:14Initialization Date: 02/19/18 13:14. - General Post-Op/Procedure Note. Date of Surgery/Procedure: 02/19/18. Operative Procedure(s): Repeat low segment transverse . Pre Op Diagnosis: Z3A.40, BPP 2/8 (decreased movement), morbid obesity. Post-Op Diagnosis: Same plus nuchal cord times one and light meconium-stained amnionic fluid. Anesthesia Technique: Spinal. Primary Surgeon: Byron Waldrop. Secondary Surgeon: Darshana Flynn. Anesthesia Provider: Brittany Fuentes. Risk Developer : Rachele Hernandez (ADARSH). Reason Risk Developer Was Necessary: Morbid obesity, difficult procedure, retraction, decrease cold morbidity and mortality. Role of Risk Developer: Morbid obesity, difficult procedure, retraction, decrease cold morbidity and mortality. Fluid Replacement, Intraop: 2,500. Output, Urine Amount: 100. EBL in mLs: 1,000. Drain/Tube Comments:: Torres. Complications: None. Condition: Good. Free Text/Narrative:: Patient Was transported to the operating room and placed under spinal anesthesia in the supine position with wedge under the right hip and right flank Torres catheter placed gravity drainage. Prepared and draped in a sterile fashion after placing the traxi drape. Timeout performed confirming name, date of and procedure as repeat section. Patient had SCDs in place and functioning prior surgery. Ancef 2 g given intravenously prior surgery. Adequate level of anesthesia was confirmed. Patient's brought to the operating room. Injecting 20 mL of 0.5% Marcaine in the area of the planned Pfannenstiel incision. Pfannenstiel incision was made and care was sharp section to into the anterior fascia. Peritoneal cavity was entered without difficulty. Bladder flap created pushed caudad. Low segment transverse performed, light meconium-stained amnionic fluid upon entry into the uterine cavity. The vacuum extractor was applied to assist in delivery for 5 seconds in the green. Infant delivered without difficulty at 1233 weighing 9 lbs. 0 oz./4082 g Apgars 9/9 Dr. Nieves floor hand in attendance. Female liveborn. Cord blood collected from three- vessel cord, placenta removed manually. Endometrial cavity inspected additional remnants of membranes removed. Sponge needle pack instrument and sharp count correct times one and the uterine incision closed in 2 layers. First layer running locking suture of 0 Monocryl. Second layer horizontal imbricating suture modified Lembert type. Hemostasis was obtained. Both tubes and ovaries appeared normal clot screen from the gutters and cul-de-sac, uterus replaced into the abdominal cavity. Sponge needle pack instrument and sharp count correct 2. The abdominal cavity was then closed with #1 PDS for the anterior fascia. 2 layers of subcutaneous closure with interrupted 0 Monocryl. Skin was closed with 3-0 Monocryl Jered needle subcuticular. Dermabond Preneo applied. Clots were cleaned from the vagina is end procedure. Patient transported postanesthesia care unit in satisfactory condition. No blood transfusions required. HgB this AM 7.5, patient not symptomatic and declined blood transfusion Diagnosis: Stroke: No - Discharge Data Discharge Date: 02/21/18 Discharge Disposition: Home, Self-Care 01 Condition: Good - Discharge Diagnosis/Problem(s) (1) Labor and delivery complicated by cord around neck without compression SNOMED Code(s): 542637347, 450554400 ICD Code: O69.81X0 - LABOR AND DEL COMP BY CORD AROUND NECK, W/O COMPRSN, UNSP Status: Acute Qualifiers: Fetus number: single or unspecified fetus Qualified Code(s): O69.81X0 - Labor and delivery complicated by cord around neck, without compression, not applicable or unspecified (2) Maternal care for decreased movements, third trimester, delivered SNOMED Code(s): 262250985, 614466407, 675793690 ICD Code: O36.8130 - DECREASED MOVEMENTS, THIRD TRIMESTER, UNSP Status: Acute Current Visit: No (3) Meconium stained amniotic fluid, delivered, current hospitalization SNOMED Code(s): 144392873 ICD Code: O77.0 - LABOR AND DELIVERY COMPLICATED BY MECONIUM IN AMNIOTIC FLUID Status: Acute Current Visit: No (4) 40 weeks gestation of SNOMED Code(s): 43726438 ICD Code: Z3A.40 - 40 WEEKS GESTATION OF Status: Acute Current Visit: No (5) Anemia, SNOMED Code(s): 745269296 ICD Code: O90.81 - ANEMIA OF THE PUERPERIUM Status: Acute Current Visit: Yes - Patient Summary/Data Operative Procedure(s) Performed: Repeat low segment transverse Complications: Anemia declined blood transfusion Consults: None Hospital Course: Uneventful - Patient Instructions Diet: Usual Diet as Tolerated Driving: Do Not Drive (48 hours and for 48 hours after last dose of Percocet) Showering/Bathing: May Shower, No Tub Bathing/Swimming (6 weeks) Wound/Incision Care: Keep Operative Site/Wound Site Clean and Dry Notify Provider of: Fever, Increased Pain, Swelling and Redness, Drainage, Nausea and/or Vomiting - Discharge Plan *PRESCRIPTION DRUG MONITORING PROGRAM REVIEWED*: Yes *COPY OF PRESCRIPTION DRUG MONITORING REPORT IN PATIENT PRECIOUS: Yes Prescriptions/Med Rec: Acetaminophen/oxyCODONE [Percocet 325-5 MG] 1 tab PO Q6H PRN #10 tablet PRN Reason: Pain (Moderate 4-6) Home Medications: Home Meds Pnv No.122/Iron/Folic Acid [ Multi Tablet] 1 each PO DAILY 09/12/16 [ History] Acetaminophen [Tylenol] 650 mg PO Q4H PRN tablet 02/21/18 [Rx] Acetaminophen/oxyCODONE [Percocet 325-5 MG] 1 tab PO Q6H PRN #10 tablet [Rx] Docusate Sodium [Colace] 100 mg PO Q12H PRN cap 02/21/18 [Rx] Ibuprofen [Motrin] 600 mg PO Q6H PRN tablet 02/21/18 [Rx] Lanolin [Lansinoh HPA] 1 applic TOP ASDIRECTED PRN tube 02/21/18 [Rx] Simethicone 80 mg PO PCBED tab.chew 02/21/18 [Rx] Referrals: Byron Waldrop MD [Primary Care Provider] - (03/06/2018) - Discharge Summary/Plan Comment DC Time >30 min.: No - Patient Data Vitals - Most Recent: Last Vital Signs Temp 98.0 F 02/21/18 03:00 Pulse 79 02/21/18 03:00 Resp 14 02/21/18 03:00 BP 156/82 H 02/21/18 03:00 Pulse Ox 97 02/21/18 03:00 Weight - Most Recent: 344 lb 1.6 oz I&O - Last 24 hours: Intake & Output 02/20/18 02/21/18 02/21/18 22:59 06:59 14:59 Intake Total 120 Balance 120 Lab Results - Last 24 hrs: Laboratory Results - last 24 hr 02/21/18 Range/Units 06:50 WBC 7.62 (3.98-10.04) K/mm3 RBC 3.30 L (3.98-5.22) M/mm3 Hgb 7.7 L (11.2-15.7) gm/L Hct 25.0 L (34.1-44.9) % MCV 75.8 L (79.4-94.8) fl MCH 23.3 L (25.6-32.2) pg MCHC 30.8 L (32.2-35.5) g/dl RDW Std Deviation 43.1 (36.4-46.3) fL Plt Count 275 (182-369) K/mm3 MPV 9.6 (9.4-12.3) fl Neut % (Auto) 62.1 (34.0-71.1) % Lymph % (Auto) 24.7 (19.3-51.7) % [place] % (Auto) 10.5 (4.7-12.5) % Eos % (Auto) 2.1 (0.7-5.8) Baso % (Auto) 0.3 (0.1-1.2) % Neut # (Auto) 4.74 (1.56-6.13) K/mm3 Lymph # (Auto) 1.88 (1.18-3.74) K/mm3 [place] # (Auto) 0.80 H (0.24-0.36) K/mm3 Eos # (Auto) 0.16 (0.04-0.36) K/mm3 Baso # (Auto) 0.02 (0.01-0.08) K/mm3 Manual Slide Review Abnormal smear Med Orders - Current: Current Medications Acetaminophen (Tylenol) 650 mg PO Q4H PRN PRN Reason: mild pain or fever Diphenhydramine HCl (Benadryl) 25 mg IVPUSH Q6H PRN PRN Reason: Itching or Nausea Docusate Sodium (Colace) 100 mg PO Q12H PRN PRN Reason: Constipation Emollient Ointment (Lansinoh Hpa) 0 gm TOP ASDIRECTED PRN PRN Reason: Sore Nipples Ephedrine Sulfate (Ephedrine Sulfate) 5 mg IVPUSH SEECOMMENT PRN PRN Reason: Other Dextrose/Lactated Ringer's (Dextrose 5%-Lactated Ringers) 1,000 mls @ 125 mls/ hr IV ASDIRECTED [facility] Last Admin: 02/20/18 06:14 Dose: 125 mls/hr Ibuprofen (Motrin) 600 mg PO Q6H PRN PRN Reason: mild pain or fever Last Admin: 02/20/18 22:14 Dose: 600 mg Naloxone HCl (Narcan) 0.1 mg IVPUSH SEECOMMENT PRN PRN Reason: Respiratory Depression Ondansetron HCl (Zofran) 4 mg IV Q4H PRN PRN Reason: Nausea/Vomiting Oxycodone/Acetaminophen (Percocet 325-5 Mg) 2 tab PO Q4H PRN PRN Reason: Pain (moderate 4-6) Last Admin: 02/21/18 02:39 Dose: 2 tab Simethicone (Simethicone) 80 mg PO PCBED [facility] Last Admin: 02/20/18 22:15 Dose: 80 mg Sodium Chloride (Saline Flush) 10 ml FLUSH ASDIRECTED PRN PRN Reason: Keep Vein Open Discontinued Medications Bupivacaine HCl (Marcaine 0.5%) Confirm Administered Dose 30 ml .ROUTE .STK-MED ONE Stop: 02/19/18 11:26 Last Admin: 02/19/18 12:29 Dose: 20 ml Citric Acid/Sodium Citrate (Bicitra Solution) 30 ml PO ONETIME ONE Stop: 02/19/18 11:30 Last Admin: 02/19/18 11:45 Dose: 30 ml Diphtheria/Tetanus/Acell Pertussis (Adacel) 0.5 ml IM .ONCE ONE Stop: 02/20/18 09:01 Last Admin: 02/20/18 11:27 Dose: 0.5 ml Furosemide (Lasix) 10 mg IVPUSH NOW ONE Stop: 02/19/18 18:26 Last Admin: 02/19/18 19:17 Dose: 10 mg Cefazolin Sodium/Dextrose 1 gm (/ Premix) 50 mls @ 100 mls/hr IV ONETIME ONE Stop: 02/19/18 11:58 Cefazolin Sodium/Dextrose 2 gm (/ Premix) 50 mls @ 100 mls/hr IV ONETIME ONE Stop: 02/19/18 11:58 Lactated Ringer's (Ringers, Lactated) 1,000 mls @ 125 mls/hr IV ASDIRECTED KATERINA Oxytocin/Lactated Ringer's (Pitocin In Lr 20 Units/1,000 Ml) 20 unit in 1,000 mls @ 50 mls/hr IV TITRATE KATERINA; Protocol Dextrose/Lactated Ringer's (Dextrose 5%-Lactated Ringers) 1,000 mls @ 125 mls/ hr IV ASDIRECTED KATERINA Stop: 02/19/18 23:02 Last Admin: 02/19/18 18:58 Dose: 125 mls/hr Dextrose/Lactated Ringer's (Dextrose 5%-Lactated Ringers) 1,000 mls @ 500 mls/ hr IV NOW STA Stop: 02/20/18 04:46 Last Admin: 02/20/18 03:01 Dose: 500 mls/hr Ketorolac Tromethamine (Toradol) 30 mg IVPUSH Q6H [facility]ATER[facility] Stop: 02/20/18 06:41 Last Admin: 02/20/18 06:48 Dose: 30 mg Metoclopramide HCl (Reglan) 10 mg IVPUSH ONETIME ONE Stop: 02/19/18 11:30 Last Admin: 02/19/18 11:45 Dose: 10 mg Morphine Sulfate (Duramorph Pf) Confirm Administered Dose 1 mg .ROUTE .STK-MED ONE Stop: 02/19/18 11:35 Nalbuphine HCl (Nubain) 10 mg IVPUSH Q2H PRN PRN Reason: pain Ondansetron HCl (Zofran) 4 mg IVPUSH Q4H PRN PRN Reason: Nausea/Vomiting Pneumococcal Polyvalent Vaccine (Pneumovax 23) 0.5 ml SUBCUT .ONCE ONE Stop: 02/20/18 09:01 Last Admin: 02/20/18 11:28 Dose: 0.5 ml Sodium Chloride (Saline Flush) 10 ml FLUSH ASDIRECTED PRN PRN Reason: Keep Vein Open
[2018-02-21 09:15] VITALS: BP 139/91
[2018-02-21] MEDS: Ibuprofen 600 MG Tab PO PRN (09:26)
== END 2018-02-21 10:05 | disposition home or self-care (01) | DRG 765 ==
LOC: JD.OBCHECK 10:55 → JD.OB 10:57 → JD.OBCHECK 11:28 → JD.OB 11:29
PROVIDERS: ADMIT Obstetrics & Gynecology; ATTEND Obstetrics & Gynecology
PROC: 10D00Z1 Extraction of Products of Conception, Low, Open Approach (ICD-10-PCS; principal; 2018-02-19)
PROC: 6A550ZT Pheresis of Cord Blood Stem Cells, Single (ICD-10-PCS; principal; 2018-02-19)
PROC: 3E0234Z Introduction of Serum, Toxoid and Vaccine into Muscle, Percutaneous Approach (ICD-10-PCS; 2018-02-20)
DX: O34.211 Maternal care for low transverse scar from previous cesarean delivery (principal); Z68.42 Body mass index [BMI] 45.0-49.9, adult; Z37.0 Single live birth; N85.8 Other specified noninflammatory disorders of uterus; O99.214 Obesity complicating childbirth; E66.01 Morbid (severe) obesity due to excess calories; O69.81X0 Labor and delivery complicated by cord around neck, without compression, not applicable or unspecified; O77.0 Labor and delivery complicated by meconium in amniotic fluid; O36.8130 Decreased fetal movements, third trimester, not applicable or unspecified; O90.81 Anemia of the puerperium; D64.9 Anemia, unspecified; Z3A.40 40 weeks gestation of pregnancy; O99.344 Other mental disorders complicating childbirth; F32.9 Major depressive disorder, single episode, unspecified; O13.4 Gestational [pregnancy-induced] hypertension without significant proteinuria, complicating childbirth; O99.334 Smoking (tobacco) complicating childbirth; F17.200 Nicotine dependence, unspecified, uncomplicated; F41.9 Anxiety disorder, unspecified; Z23 Encounter for immunization
CPT/HCPCS: 01961; 36415; 85025; 86592; 86850; 86900; 86901; 87340; 90471; 90715; 90732; 94762; A9270-GY; G0475; J1885; J1940; J2274; J2765; J3490; J7042

== ENCOUNTER 2022-08-18 05:16 | Inpatient (IN) | payer MEDICAID ==
[2022-08-18] MEDS: Lactated Ringers 1,000 ML IV SCH ×2 (06:10→07:11)
[2022-08-18] MEDS ORDERED: Morphine PF 1 MG/ML Amp ONE (06:52)
[2022-08-18] MEDS ORDERED: Metoclopramide 10 MG/2 ML SDV IVPUSH ONE (07:00)
[2022-08-18] MEDS ORDERED: Citric Acid/Sodium Citrate Solution 30 ML Cup PO ONE (07:00)
[2022-08-18] MEDS ORDERED: ceFAZolin 2 GM Vial ONE (07:37)
[2022-08-18] MEDS ORDERED: Phenylephrine HCl In 0.9% NaCl 1 MG/10 ML Vial ONE ×2 (07:43→07:54)
[2022-08-18] MEDS ORDERED: Lactated Ringers 1,000 ML ONE (07:45)
[2022-08-18] MEDS ORDERED: Oxytocin 10 Units/1 ML SDV ONE ×2 (07:56→08:39)
[2022-08-18] MEDS ORDERED: Oxytocin/Lactated Ringers 10 UNIT/1,000 ML BAG IV SCH (08:00)
[2022-08-18] MEDS ORDERED: Ondansetron 4 MG/2 ML SDV ONE (08:01)
[2022-08-18] MEDS ORDERED: Ketorolac 30 MG/ML SDV ONE (08:01)
[2022-08-18] MEDS ORDERED: diphenhydrAMINE 50 MG/ML SDV IVPUSH PRN ×2 (08:56→12:29)
[2022-08-18] MEDS ORDERED: Meperidine 50 MG/ML Vial IVPUSH PRN (08:56)
[2022-08-18] MEDS ORDERED: Ondansetron 4 MG/2 ML SDV IVPUSH PRN (08:56)
[2022-08-18] MEDS ORDERED: fentaNYL 100 MCG/2 ML SDV IVPUSH PRN (08:56)
[2022-08-18] MEDS ORDERED: Acetaminophen/oxyCODONE 325-5 MG Tab PO PRN ×2 (12:29)
[2022-08-18] MEDS ORDERED: Naloxone 0.4 MG/ML SDV IVPUSH PRN (12:29)
[2022-08-18] MEDS ORDERED: Dextrose 5%-Lactated Ringers 1,000 ML IV SCH (12:29)
[2022-08-18] MEDS: Ketorolac 30 MG/ML SDV IVPUSH SCH ×2 (15:19→21:55)
[2022-08-18] MEDS: NIFEdipine 30 MG Tab.ER PO SCH (16:22)
[2022-08-19] MEDS: Ketorolac 30 MG/ML SDV IVPUSH SCH (04:04)
[2022-08-19] MEDS ORDERED: Ibuprofen 600 MG Tab PO PRN (09:00)
[2022-08-19] MEDS: NIFEdipine 30 MG Tab.ER PO SCH (09:24)
[2022-08-19 09:25] VITALS: BP 125/68
[2022-08-19 15:21] VITALS: PULSE 77
== END 2022-08-19 12:00 | disposition home or self-care (01) | DRG 787 ==
LOC: JD.OB 05:16
PROVIDERS: ADMIT Obstetrics & Gynecology; ATTEND Obstetrics & Gynecology
PROC: 10D00Z1 Extraction of Products of Conception, Low, Open Approach (ICD-10-PCS; principal; 2022-08-18)
DX: O34.211 Maternal care for low transverse scar from previous cesarean delivery (principal); O10.92 Unspecified pre-existing hypertension complicating childbirth; O99.214 Obesity complicating childbirth; O99.344 Other mental disorders complicating childbirth; F41.9 Anxiety disorder, unspecified; F32.A Depression, unspecified; Z37.0 Single live birth; Z3A.39 39 weeks gestation of pregnancy; Z87.891 Personal history of nicotine dependence; Z90.49 Acquired absence of other specified parts of digestive tract
CPT/HCPCS: 36415; 59025; 82565; 82570; 84156; 84450; 84460; 85025; 85027; 86592; 86850; 86900; 86901; 94762; A9270-GY; J0690; J1200; J1885; J2274; J2405; J2590; J2765; J3490; J7120; J7121

== ENCOUNTER 2022-09-12 20:19 | Emergency (ER) | payer MEDICAID ==
[2022-09-12 20:43] VITALS: BP 145/86; PULSE 86
[2022-09-12] MEDS ORDERED: Cephalexin 500 MG Cap PO ONE (22:04)
== END 2022-09-12 22:00 | disposition home or self-care (01) ==
LOC: JD.ED 20:19
DX: N61.0 Mastitis without abscess (principal); E66.9 Obesity, unspecified; Z91.018 Allergy to other foods; Z87.891 Personal history of nicotine dependence; Z68.42 Body mass index [BMI] 45.0-49.9, adult
CPT/HCPCS: 99283; A9270

== ENCOUNTER 2022-09-17 13:03 | Emergency (ER) | payer MEDICAID ==
[2022-09-17] MEDS ORDERED: Sodium Chloride 0.9% 10 ML Syringe FLUSH PRN (13:24)
[2022-09-17] MEDS ORDERED: cefTRIAXone 2 GM in Sodium Chloride 0.9% 100 ML IV ONE (13:25)
[2022-09-17 13:26] VITALS: BP 145/83; PULSE 70
== END 2022-09-17 16:00 | disposition home or self-care (01) ==
LOC: JD.ED 13:03
DX: N61.0 Mastitis without abscess (principal); I10 Essential (primary) hypertension; E66.9 Obesity, unspecified; Z68.41 Body mass index [BMI] 40.0-44.9, adult; Z91.018 Allergy to other foods; Z79.899 Other long term (current) drug therapy; Z90.49 Acquired absence of other specified parts of digestive tract; Z87.891 Personal history of nicotine dependence
CPT/HCPCS: 36415; 80053; 85025; 86140; 96365; 99283; J0696; J3490